=== PATIENT | female | born 1975 | race Asian ===

== ENCOUNTER 2017-11-21 14:29 | Emergency (ER) | payer OTHER | END 2017-11-21 14:52 | disposition home or self-care (01) | LOC: SCSER 14:29 | DX: S00.33XA Contusion of nose, initial encounter (principal); M62.838 Other muscle spasm; Z79.899 Other long term (current) drug therapy; V43.62XA Car passenger injured in collision with other type car in traffic accident, initial encounter | CPT/HCPCS: 99283 ==